=== PATIENT | male | born 1940 | race Caucasian/White ===

== ENCOUNTER 2024-10-29 22:54 | Emergency (ER) | payer MEDICARE, OTHER, SELFPAY ==
[2024-10-29 22:55] VITALS: BP 153/40; PULSE 65; RESP 16; TEMP 37.1; O2SAT 95
[2024-10-30 00:01] VITALS: BP 145/80; PULSE 75; RESP 18; O2SAT 98
--- NOTE | 2024-10-30 03:02 | ED_ITS ---
HPI - Wound/Laceration General Chief Complaint: Fall Stated Complaint: GLF Time Seen by Provider: 10/30/24 02:16 Source: patient Mode of arrival: ambulatory Limitations: no limitations History of Present Illness HPI narrative: This is an 84-year-old male that presents to the emergency department after a ground level fall today. He was walking with his walker. Lost his balance and fell cutting his right lower leg on his walker. He did not hit his head or lose consciousness. His daughter was with him and was holding onto him. Only reporting a laceration to the lower leg No other injuries or focal areas of pain. Patient has been ambulatory since the fall. Unsure of last tetanus vaccination. Review of Systems Review of Systems: All systems reviewed & are unremarkable except as noted in HPI and below PMFSH Past Medical History Medical History (Updated 10/30/24 @ 03:30 by Nelda Yates PA-C) Hyperlipidemia Diabetes mellitus Exam Narrative: GENERAL: Well-appearing, well-nourished, and in no acute distress. HEAD: Normocephalic, atraumatic. EYES: EOMI. CHEST: No respiratory distress. HEART: Regular rate EXTREMITIES: Normal range of motion. No edema or obvious deformity. Large skin tear right lower leg SKIN: Warm, dry, no rash. NEURO: No focal deficits. Alert and oriented x3. PSYCH: Normal mood and affect Course Vital Signs Vital signs: Vital Signs Temperature 98.7 F 10/29/24 22:55 Pulse Rate 65 10/29/24 22:55 Respiratory Rate 16 10/29/24 22:55 Blood Pressure 153/40 H 10/29/24 22:55 Pulse Oximetry 95 10/29/24 22:55 Oxygen Delivery Room Air 10/29/24 22:55 Temperature 98.7 F 10/29/24 22:55 Pulse Rate 65 10/29/24 22:55 Respiratory Rate 16 10/29/24 22:55 Blood Pressure 153/40 H 10/29/24 22:55 Pulse Oximetry 95 10/29/24 22:55 Oxygen Delivery Room Air 10/29/24 22:55 Procedures Laceration Laceration 1: Date: 10/30/24 Time: 03:30 Site: lower extremity Side (If applicable): right Size (cm): 10 Description: flap Depth: simple, single layer Pre-repair: wound explored and irrigated ====== Skin Level ====== Skin layer closed with: steri strips ====== Subcutaneous Layer ====== ====== Muscle Layer ====== ====== Tendon Layer ====== MDM - Wound/Laceration MDM Narrative Medical decision making narrative: Patient presents to the emergency department for a skin tear after a ground level fall. Family witnessed the fall. He did not hit his head or lose consciousness. No other focal injuries or areas of pain. Sustained a laceration due to his walker. Had a large skin tear. Updated on tetanus vaccination. His wound was irrigated and bandaged with Steri-Strips, Telfa, Kerlix, Coban. He was educated on further wound care. He is to follow up with primary provider. He was given warnings to return to the ER Differential Diagnosis Differential diagnosis: Likely abrasion, avulsion of skin and other (Skin tear) Critical Care Time Critical Care Time Critical Care Time: No Discharge Plan Discharge Clinical Impression: Skin tear Patient Disposition: Home Condition: Stable Instructions: Antibiotic Form, Skin Tear (ED) Additional Instructions: Return to the emergency department if you experience fever, redness or swelling of your wound, abnormal drainage from your wound, or any other symptoms that are concerning to you. You may let the water run over the wound in the shower. Apply new steri strips if they fall off and a nonstick bandage first. Take oral antibiotic as prescri bed Follow-up with your primary care doctor for wound check Patient Language: Maltese Prescriptions: New cephalexin 500 mg capsule 500 mg PO Q8H 5 Days Qty: 15 0RF Follow-up/Referrals: PHYSICIAN NOT ON STAFF,NONSTAFF [Primary Care Provider]
[2024-10-30] MEDS: Please add drug allergy info to patient profile. 1 EACH XX (03:42)
[2024-10-30] MEDS: TETANUS,DIPHTHERIA,AC PERTUSSIS ADULT (0.5 ML) BOOSTRIX IM (03:45)
[2024-10-30 03:54] VITALS: BP 157/81; PULSE 99; RESP 18; O2SAT 94
== END 2024-10-30 03:20 | disposition home or self-care (01) ==
LOC: ANHED 10-30 03:21
PROVIDERS: Emergency Provider Physician Assistant
DX: S81.011A Laceration without foreign body, right knee, initial encounter (principal); E11.9 Type 2 diabetes mellitus without complications; E78.5 Hyperlipidemia, unspecified; Z23 Encounter for immunization; W18.30XA Fall on same level, unspecified, initial encounter
CPT/HCPCS: 90471; 90715; 99283